=== PATIENT | male | born 1980 ===

== ENCOUNTER 2017-07-09 09:35 | Emergency (ER) | payer SELFPAY ==
[2017-07-09 09:42] VITALS: BP 179/96; PULSE 60; RESP 20; TEMP 97.3; O2SAT 100
[2017-07-09] MEDS ORDERED: Naproxen 550 mg Tab PO STA (09:53)
--- NOTE | 2017-07-09 09:55 | C.PDOC ---
History Of Present Illness 37 year old male presents to the ER with a complaint of a sensation of bilateral ear fullnes and a buzzing sounds to the right ear for the past 5-6 days. Denies fever, sore throat, ear discharge, cough, or runny nose. Patient also has another complaint of mild left shoulder pain that worsens with movement that began today. Denies falls, injuries, chest pain, or SOB. Time Seen by Provider: 07/09/17 09:44 Chief Complaint (Nursing): ENT Problem History Per: Patient History/Exam Limitations: no limitations Onset/Duration Of Symptoms: Days Current Symptoms Are (Timing): Still Present Quality: Other (Fullness of ears) Exacerbating Factor(s): Strenuous Use Of Affected Area (Left shoulder) Recent travel outside of the [place]: No Past Medical History Reviewed: Historical Data, Nursing Documentation, Vital Signs Vital Signs: Last Vital Signs Temp 97.3 F L 07/09/17 09:37 Pulse 60 07/09/17 09:37 Resp 20 07/09/17 09:37 BP 179/96 H 07/09/17 09:37 Pulse Ox 100 07/09/17 10:48 - Medical History PMH: Gastritis, HTN, Hypercholesterolemia Surgical History: No Surg Hx Family History: States: Unknown Family Hx - Social History Hx Tobacco Use: No Hx Alcohol Use: Yes (Occasional) Hx Substance Use: No - Immunization History Hx Tetanus Toxoid Vaccination: No Hx Influenza Vaccination: No Hx Pneumococcal Vaccination: No Review Of Systems Except As Marked, All Systems Reviewed And Found Negative. ENT: Positive for: Other (Bilateral ear fullness, buzzing sounds to right ear) Musculoskeletal: Positive for: Shoulder Pain (Left) Physical Exam - Physical Exam Appears: Non-toxic, No Acute Distress, Other (Comfortable, speaking in complete sentences) Skin: Normal Color, Warm, Dry Head: Atraumatic, Normacephalic Eye(s): bilateral: Normal Inspection, EOMI Ear(s): Bilateral: TM Obscured By Wax (No erythema, swelling, or discharge of the canal) Oral Mucosa: Moist Throat: Normal, No Erythema, No Exudate Chest: Symmetrical, No Tenderness Cardiovascular: Rhythm Regular Respiratory: Normal Breath Sounds, No Rales, No Rhonchi, No Wheezing Extremity: Normal ROM (x4), Tenderness (Mild diffuse to left shoulder), No Deformity, No Swelling Pulses: Left Radial: Normal, Right Radial: Normal Neurological/Psych: Oriented x3, Normal Speech, Normal Cognition, Normal Motor, Normal Sensation ED Course And Treatment O2 Sat by Pulse Oximetry: 100 (Room air) Pulse Ox Interpretation: Normal Progress Note: Patient treated with naproxen for left shoulder pain and given Rx of debrox eardrops. Patient instructed to follow up with ENT for further evaluation. Disposition Counseled Patient/Family Regarding: Diagnosis, Need For Followup, Rx Given - Disposition Referrals: [facility] [Outside] Jhonny Starkey MD [Staff Provider] - Disposition: HOME/ ROUTINE Disposition Time: 10:10 Condition: STABLE Additional Instructions: SEGUIMIENTO CON DR STARKEY DENTRO DE 1 SEMANA UTILIZAR LAS GOTAS DEL ODO SEGN LAS INSTRUCCIONES REGRESE AL CHRISTINA DE EMERGENCIA SI LOS SNTOMAS EMPEORAN Prescriptions: Carbamide Peroxide [Debrox Ear Drops] 10 drop OD BID #1 bottle Instructions: Cerumen Impaction (ED) Forms: [employer] (Andorran) Print Language: TURKISH - Clinical Impression Clinical Impression: Excessive cerumen in both ear canals, Left shoulder pain - Scribe Statement The provider has reviewed the documentation as recorded by the Scribe Connor Flynn All medical record entries made by the Scribe were at my direction and personally dictated by me. I have reviewed the chart and agree that the record accurately reflects my personal performance of the history, physical exam, medical decision making, and the department course for this patient. I have also personally directed, reviewed, and agree with the discharge instructions and disposition.
[2017-07-09] MEDS ORDERED: Naproxen 550 mg Tab PO ONE (10:02)
== END 2017-07-09 10:05 | disposition home or self-care (01) ==
LOC: C.ER 09:35
DX: H61.23 Impacted cerumen, bilateral (principal); M25.512 Pain in left shoulder

== ENCOUNTER 2018-03-28 09:43 | Emergency (ER) | payer SELFPAY ==
[2018-03-28 10:19] VITALS: TEMP 98.5
[2018-03-28 10:22] LABS: BASO # 0.1 K/uL (0.0-0.2); BASO % 1.1 % (0.0-2.0); EOS # 0.5 K/uL (0.0-0.7); HEMOGLOBIN 15.2 g/dL (12.0-18.0); LYMPH # 2.4 K/uL (1.0-4.3); LYMPH % 31.6 % (20.0-40.0); MEAN CORPUSCULAR HEMOGLOBIN 30.4 pg (27.0-31.0); MEAN CORPUSCULAR HGB CONC 34.5 g/dL (33.0-37.0); MEAN PLATELET VOLUME 8.8 fL (7.2-11.7); MONO # 0.4 K/uL (0.0-0.8); MONO % 5.8 % (0.0-10.0); NEUT # 4.2 K/uL (1.8-7.0); NEUT % 55.5 % (50.0-75.0); RBC 5.01 Mil/uL (4.40-5.90); RED CELL DISTRIBUTION WIDTH 13.6 % (11.5-14.5); WHITE BLOOD COUNT 7.6 K/uL (4.8-10.8)
[2018-03-28 10:33] LABS: ALB/GLOB RATIO 1.4 (1.0-2.1); ALBUMIN 4.7 g/dL (3.5-5.0); ALT/SGPT 40 U/L (21-72); AST/SGOT 34 U/L (17-59); BLOOD UREA NITROGEN 10 mg/dL (9-20); GFR AFRICAN-AMERICAN > 60; GFR NON-AFRICAN AMERICAN > 60
[2018-03-28 10:43] LABS: URINE AMORPHOUS SEDIMENT RARE /ul (<OCC); URINE BACTERIA RARE (<OCC); URINE BILIRUBIN NEGATIVE (NEGATIVE); URINE BLOOD NEGATIVE (NEGATIVE); URINE CLARITY Hazy (Clear); URINE COLOR Yellow (YELLOW); URINE GLUCOSE (UA) NORMAL (Normal); URINE LEUKOCYTE ESTERASE NEG Leu/uL (Negative); URINE PROTEIN 1+ mg/dL (NEGATIVE); URINE UROBILINOGEN NORMAL mg/dL (0.2-1.0)
--- NOTE | 2018-03-28 10:51 | C.PDOC ---
History Of Present Illness 37 year old male with history of hypertension presents to the ED complaining of a pounding headache that started three days ago. Patient states the pain started on the right side and is now feeling the pain all over his head. He states it feels like "something is squeezing my head." Patient took Advil and had mild relief. Patient also reports feels dizzy this morning. Denies nausea, vomiting, vision changes, facial numbness, extremity numbness or weakness, chest pain or SOB. Of note, patient has been non-compliant with HTN medication for some time. Time Seen by Provider: 03/28/18 09:57 Chief Complaint (Nursing): Headache History Per: Patient History/Exam Limitations: no limitations Onset/Duration Of Symptoms: Days Current Symptoms Are (Timing): Still Present Quality: Squeezing Recent travel outside of the [place]: No Past Medical History Reviewed: Historical Data, Nursing Documentation, Vital Signs Vital Signs: Last Vital Signs Temp 98.5 F 03/28/18 10:18 Pulse 66 03/28/18 11:45 Resp 12 03/28/18 11:45 BP 123/77 03/28/18 11:45 Pulse Ox 99 03/28/18 11:55 - Medical History PMH: Gastritis, HTN, Hypercholesterolemia Surgical History: No Surg Hx Family History: States: No Known Family Hx, Unknown Family Hx - Social History Hx Tobacco Use: No Hx Alcohol Use: Yes (Occasional) Hx Substance Use: No - Immunization History Hx Tetanus Toxoid Vaccination: No Hx Influenza Vaccination: No Hx Pneumococcal Vaccination: No Review Of Systems Eyes: Negative for: Pain, Vision Change ENT: Negative for: Ear Pain Cardiovascular: Negative for: Chest Pain Respiratory: Negative for: Shortness of Breath Gastrointestinal: Negative for: Nausea, Vomiting Musculoskeletal: Negative for: Neck Pain Neurological: Positive for: Dizziness. Negative for: Weakness, Numbness Physical Exam - Physical Exam Appears: Well, Non-toxic, No Acute Distress Skin: Warm, Dry, No Rash Head: Atraumatic, Normacephalic, No Tenderness, No Swelling Eye(s): bilateral: Normal Inspection, PERRL, EOMI, Other (no nystagmus) Oral Mucosa: Moist Neck: Normal ROM Chest: Symmetrical Cardiovascular: Rhythm Regular, No Murmur Respiratory: Normal Breath Sounds, No Rales, No Rhonchi, No Wheezing Extremity: Bilateral: Atraumatic, Normal Color And Temperature, Normal ROM Neurological/Psych: Oriented x3, Normal Speech, Normal Cognition, Normal Cranial Nerves, No Cerebellar Signs, Normal Motor, Normal Sensation Gait: Steady ED Course And Treatment - Laboratory Results Result Diagrams: 03/28/18 10:18 03/28/18 10:18 ECG: Interpreted By Me, Viewed By Me (Dr Vallecillo) ECG Rhythm: Sinus Bradycardia, 1st Degree HB ECG Interpretation: No Acute Changes Interpretation Of ECG: SB at 55 bpm with 1st degree AV block; last EKG 12/25/14 was normal sinus O2 Sat by Pulse Oximetry: 99 (RA) Pulse Ox Interpretation: Normal - CT Scan/US CT head Other Rad Studies (CT/US): Read By Radiologist, Radiology Report Reviewed CT/US Interpretation: FINDINGS: HEMORRHAGE: No intracranial hemorrhage. BRAIN : Normal george-white matter differentiation and density are appreciated throughout the cerebrum and cerebellum with the brainstem appearing unremarkable as well. There is no mass effect. There is no suspicious extra- axial fluid collection and the midline brain anatomy appears diffusely unremarkable. VENTRICLES: Unremarkable. No hydrocephalus. CALVARIUM: Unremarkable. PARANASAL SINUSES: Unremarkable as visualized. No significant inflammatory changes. MASTOID AIR CELLS: Unremarkable as visualized. No inflammatory changes. OTHER FINDINGS: None. IMPRESSION: Unremarkable noncontrast head CT. Medical Decision Making Medical Decision Making: Impression: headache Plan * CT head * EKG * labs * Catapres * Norvasc * Reglan * Urinalysis Progress: All labs reviewed, no leukocytosis or electrolyte abnormality; urine shows 1+ protein. CT reviewed with no acute intracranial findings. Patient re-evaluated and reports feeling better. His blood pressure improved and vital signs are stable. HE remained alert and oriented without fever, nuchal rigidity or neuro deficits. I discussed all results with patient and provided copy of results. I advised patient on uncontrolled HTN and how it can lead to potential life threatening or disabling events including CVA, AMI, TOMMIE. Patient expressed understanding and will follow up in the clinic and start anti- hypertensive medication. Disposition Counseled Patient/Family Regarding: Studies Performed, Diagnosis, Need For Followup, Rx Given - Disposition Referrals: [facility] [Outside] [facility] [Outside] Disposition: HOME/ ROUTINE Disposition Time: 11:50 Condition: STABLE Additional Instructions: Rm presin arterial era muy whitney hoy. Es importante que realice un seguimiento con la clnica o el mdico de cabecera para los controles de la presin arterial. Comience con che dieta baja en sodio y tome medicamentos para ayudar a controlar la presin arterial. Regrese al departamento de emergencia en cualquier momento si los sntomas persisten o empeoran Prescriptions: hydroCHLOROthiazide [Microzide] 12.5 mg PO DAILY #30 cap Instructions: High Blood Pressure (DC) Forms: [employer] (Maltese) Print Language: GRENADIAN - POA Present On Arrival: None - Clinical Impression Clinical Impression: Headache, HTN (hypertension) - PA / BICYCLE RACER / Resident Statement MD/DO has reviewed & agrees with the documentation as recorded. - Scribe Statement The provider has reviewed the documentation as recorded by the Scribe Raymond Michael All medical record entries made by the Scribe were at my direction and personally dictated by me. I have reviewed the chart and agree that the record accurately reflects my personal performance of the history, physical exam, medical decision making, and the department course for this patient. I have also personally directed, reviewed, and agree with the discharge instructions and disposition.
[2018-03-28 11:12] LABS: BARBITURATES, UR NEGATIVE (NEGATIVE); BENZODIAZEPINES, UR NEGATIVE (NEGATIVE); OPIATES, UR NEGATIVE (NEGATIVE); PHENCYCLIDINE, UR NEGATIVE (NEGATIVE)
--- NOTE | 2018-03-28 11:39 | CT ---
Date of service: 03/28/2018 PROCEDURE: CT HEAD WITHOUT CONTRAST. HISTORY: [id number], Dizzy COMPARISON: None available. TECHNIQUE: Axial computed tomography images were obtained through the head/brain without intravenous contrast. Radiation dose: Total exam DLP = 849.21 mGy-cm. This CT exam was performed using one or more of the following dose reduction techniques: Automated exposure control, adjustment of the mA and/or kV according to patient size, and/or use of iterative reconstruction technique. FINDINGS: HEMORRHAGE: No intracranial hemorrhage. BRAIN: Normal george-white matter differentiation and density are appreciated throughout the cerebrum and cerebellum with the brainstem appearing unremarkable as well. There is no mass effect. There is no suspicious extra-axial fluid collection and the midline brain anatomy appears diffusely unremarkable. VENTRICLES: Unremarkable. No hydrocephalus. CALVARIUM: Unremarkable. PARANASAL SINUSES: Unremarkable as visualized. No significant inflammatory changes. MASTOID AIR CELLS: Unremarkable as visualized. No inflammatory changes. OTHER FINDINGS: None. IMPRESSION: Unremarkable noncontrast head CT.
[2018-03-28 11:41] VITALS: O2SAT 99
[2018-03-28 11:54] VITALS: BP 123/77; PULSE 66; RESP 12
--- NOTE | 2018-03-30 12:09 | CARD ---
APPROVED REPORT Date of service: 03/28/2018 EKG Measurement Heart [id number] <Conclusion> Sinus bradycardia with 1st degree AV block Nonspecific T wave abnormality Abnormal ECG
== END 2018-03-28 11:55 | disposition home or self-care (01) ==
LOC: C.ER 09:43
DX: I10 Essential (primary) hypertension (principal); R51 Headache
CPT/HCPCS: 70450; 80053; 81001; 85025; 93005; 96374; 99285; G0480; J2765